=== PATIENT | female | born 1990 | race Caucasian/White ===

== ENCOUNTER 2017-06-12 20:25 | Emergency (ER) | payer SELFPAY | END 2017-06-12 22:05 | disposition left against medical advice (07) | LOC: E/R 20:25 | DX: Z53.21 Procedure and treatment not carried out due to patient leaving prior to being seen by health care provider (principal) ==

== ENCOUNTER 2017-06-13 11:01 | Emergency (ER) | payer OTHER ==
[2017-06-13] MEDS: IBUPROFEN 800 MG TAB PO (15:18)
== END 2017-06-13 15:41 | disposition home or self-care (01) ==
LOC: FTE 11:01
DX: M25.562 Pain in left knee (principal)
CPT/HCPCS: 29505; 99283-25

== ENCOUNTER 2017-07-23 20:34 | Emergency (ER) | payer OTHER ==
[2017-07-23] MEDS: ONDANSETRON (ODT) 4 MG TAB ODT (21:19)
[2017-07-23] MEDS: KETOROLAC 60 MG INJ IM (21:19)
[2017-07-23 21:27] LABS: URINE PH (Dip) POC 6.5 (5.0-8.5)
[2017-07-23 21:27] LABS: URINE BLOOD (Dip) POC Trace-intact (NEGATIVE); URINE GLUCOSE (Dip) POC Negative (NEGATIVE); URINE KETONES (Dip) POC Negative (NEGATIVE); URINE LEUKOCYTE EST (Dip) POC 1+ (NEGATIVE); URINE NITRITE (Dip) POC Negative (NEGATIVE); URINE TOTAL PROTEIN POC 1+ (NEGATIVE)
== END 2017-07-23 22:21 | disposition home or self-care (01) ==
LOC: FTE 20:34
DX: M79.1 Myalgia (principal); N39.0 Urinary tract infection, site not specified
CPT/HCPCS: 81003; 81025; 96372; 99284-25

== ENCOUNTER 2018-03-11 17:59 | Emergency (ER) | payer OTHER ==
[2018-03-11] MEDS: ACETAMINOPHEN 325 MG TAB PO (18:43)
[2018-03-11] MEDS: METOCLOPRAMIDE 10 MG INJ IV (18:43)
[2018-03-11] MEDS: SOD CHLORIDE 0.9% 1,000 ML IV (18:44)
[2018-03-11 18:55] LABS: ADD MAN DIFF? NO
[2018-03-11 18:57] LABS: WHITE BLOOD COUNT 9.9 10^3/ul (4.8-10.8)
[2018-03-11 18:57] LABS: BASOPHILS % 0.1 % (0.0-2.0); EOSINOPHILS # 0.2 10^3/ul (0.0-0.5); EOSINOPHILS % 2.1 % (0.0-7.0); HEMATOCRIT 37.5 % (37.0-47.0); LYMPHOCYTES # 2.3 10^3/ul (0.8-2.9); LYMPHOCYTES % 23.2 % (15.0-51.0); MEAN CORPUSCULAR HGB CONC 34.7 g/dl (32.0-37.0); MEAN CORPUSCULAR VOLUME 86.4 fl (82.0-101.0); MEAN PLATELET VOLUME 10.7 fl (7.4-10.4); MONOCYTE # 0.6 10^3/ul (0.3-0.9); MONOCYTES % 5.9 % (0.0-11.0); NEUTROPHIL # 6.8 10^3/ul (1.6-7.5); NEUTROPHILS % 68.5 % (39.0-77.0); PLATELET COUNT 225 10^3/UL (140-415); RED BLOOD COUNT 4.34 10^6/ul (4.20-5.40); RED CELL DISTRIBUTION WIDTH 12.3 % (11.5-14.5)
[2018-03-11 19:16] LABS: ADD UMIC YES; UR ASCORBIC ACID NEGATIVE (NEGATIVE); UR BACTERIA MODERATE /HPF (NONE SEEN); UR BILIRUBIN (Dip) NEGATIVE (NEGATIVE); UR BLOOD (Dip) NEGATIVE (NEGATIVE); UR CLARITY CLOUDY (CLEAR); UR COLOR YELLOW (YELLOW); UR GLUCOSE (Dip) NEGATIVE (NEGATIVE); UR KETONES (Dip) NEGATIVE (NEGATIVE); UR LEUKOCYTE ESTERASE (Dip) 2+ Leu/ul (NEGATIVE); UR MUCUS FEW /HPF (NONE SEEN); UR NITRITE (Dip) NEGATIVE (NEGATIVE); UR RBC 7 /HPF (0-5); UR SPECIFIC GRAVITY (Dip) 1.012 (1.003-1.030); UR SQUAMOUS EPITHELIAL CELL MODERATE /HPF (FEW); UR TOTAL PROTEIN (Dip) NEGATIVE (NEGATIVE); UR UROBILINOGEN (Dip) NEGATIVE (NEGATIVE); UR WBC 11 /HPF (0-5)
[2018-03-11 19:19] LABS: ANION GAP 10 (5-13); BLOOD UREA NITROGEN 6 mg/dl (7-20); CALCIUM 9.9 mg/dl (8.4-10.2); CARBON DIOXIDE 22 mmol/L (21-31); CHLORIDE 107 mmol/L (97-110); CREATININE 0.49 mg/dl (0.44-1.00); Estimated GFR > 60 mL/min (>60); GLUCOSE 94 mg/dl (70-220); POTASSIUM 3.8 mmol/L (3.5-5.1); SODIUM 139 mmol/L (135-144)
== END 2018-03-11 19:43 | disposition home or self-care (01) ==
LOC: FTE 17:59
DX: O21.0 Mild hyperemesis gravidarum (principal); Z3A.13 13 weeks gestation of pregnancy
CPT/HCPCS: 36415; 80048; 81001; 85025; 96374; 99284-25

== ENCOUNTER 2018-04-14 09:05 | Emergency (ER) | payer OTHER ==
[2018-04-14 09:45] LABS: ADD MAN DIFF? NO; URINE BLOOD (Dip) POC Trace-intact (NEGATIVE); URINE GLUCOSE (Dip) POC Negative (NEGATIVE); URINE KETONES (Dip) POC Negative (NEGATIVE); URINE LEUKOCYTE EST (Dip) POC 1+ (NEGATIVE); URINE NITRITE (Dip) POC Negative (NEGATIVE); URINE TOTAL PROTEIN POC Trace (NEGATIVE)
[2018-04-14 09:58] LABS: BASOPHILS % 0.2 % (0.0-2.0); EOSINOPHILS # 0.1 10^3/ul (0.0-0.5); HEMATOCRIT 37.8 % (37.0-47.0); LYMPHOCYTES # 1.3 10^3/ul (0.8-2.9); LYMPHOCYTES % 12.8 % (15.0-51.0); MEAN CORPUSCULAR HEMOGLOBIN 30.2 pg (29.0-33.0); MEAN CORPUSCULAR HGB CONC 34.4 g/dl (32.0-37.0); MEAN CORPUSCULAR VOLUME 87.7 fl (82.0-101.0); MEAN PLATELET VOLUME 10.9 fl (7.4-10.4); MONOCYTE # 0.6 10^3/ul (0.3-0.9); MONOCYTES % 6.3 % (0.0-11.0); NEUTROPHILS % 79.2 % (39.0-77.0); PLATELET COUNT 211 10^3/UL (140-415); RED BLOOD COUNT 4.31 10^6/ul (4.20-5.40); RED CELL DISTRIBUTION WIDTH 12.8 % (11.5-14.5)
[2018-04-14 10:09] LABS: ALANINE AMINOTRANSFERASE 27 IU/L (13-69); ALBUMIN 3.9 g/dl (3.3-4.9); ALKALINE PHOSPHATASE 59 IU/L (42-121); ANION GAP 10 (5-13); ASPARTATE AMINO TRANSFERASE 25 IU/L (15-46); BILIRUBIN,INDIRECT 0.6 mg/dl (0-1.1); BILIRUBIN,TOTAL 0.6 mg/dl (0.2-1.3); BLOOD UREA NITROGEN 6 mg/dl (7-20); CALCIUM 9.3 mg/dl (8.4-10.2); CARBON DIOXIDE 23 mmol/L (21-31); CHLORIDE 105 mmol/L (97-110); CREATININE 0.44 mg/dl (0.44-1.00); Estimated GFR > 60 mL/min (>60); GLUCOSE 91 mg/dl (70-220); POTASSIUM 3.9 mmol/L (3.5-5.1); SODIUM 138 mmol/L (135-144); TOTAL PROTEIN 6.9 g/dl (6.1-8.1)
== END 2018-04-14 10:33 | disposition home or self-care (01) ==
LOC: FTE 09:05
DX: O99.89 Other specified diseases and conditions complicating pregnancy, childbirth and the puerperium (principal); R09.81 Nasal congestion; R21 Rash and other nonspecific skin eruption; Z3A.01 Less than 8 weeks gestation of pregnancy
CPT/HCPCS: 36415; 80053; 81003; 85025; 99283

== ENCOUNTER 2018-06-24 11:49 | Outpatient (CLI) | payer OTHER ==
[2018-06-24 13:55] LABS: RUPTURE FETAL MEMBRANES NEGATIVE (NEGATIVE)
[2018-06-24 14:22] LABS: ADD UMIC YES; UR AMORPHOUS CRYSTAL FEW /HPF (NONE SEEN); UR ASCORBIC ACID 40 mg/dL (NEGATIVE); UR BACTERIA FEW /HPF (NONE SEEN); UR BILIRUBIN (Dip) NEGATIVE (NEGATIVE); UR BLOOD (Dip) NEGATIVE (NEGATIVE); UR CLARITY CLOUDY (CLEAR); UR COLOR YELLOW (YELLOW); UR GLUCOSE (Dip) NEGATIVE (NEGATIVE); UR KETONES (Dip) NEGATIVE (NEGATIVE); UR LEUKOCYTE ESTERASE (Dip) 3+ Leu/ul (NEGATIVE); UR NITRITE (Dip) NEGATIVE (NEGATIVE); UR NONSQUAMOUS EPITHELIAL CELL 1 /HPF (NONE SEEN); UR RBC 3 /HPF (0-5); UR SPECIFIC GRAVITY (Dip) 1.015 (1.003-1.030); UR SQUAMOUS EPITHELIAL CELL FEW /HPF (FEW); UR TOTAL PROTEIN (Dip) NEGATIVE (NEGATIVE); UR UROBILINOGEN (Dip) NEGATIVE (NEGATIVE); UR WBC 6 /HPF (0-5)
[2018-06-24 14:54] LABS: ADD MAN DIFF? NO
[2018-06-24 14:55] LABS: WHITE BLOOD COUNT 9.8 10^3/ul (4.8-10.8)
[2018-06-24 14:55] LABS: BASOPHILS % 0.2 % (0.0-2.0); EOSINOPHILS # 0.2 10^3/ul (0.0-0.5); EOSINOPHILS % 1.6 % (0.0-7.0); HEMATOCRIT 34.8 % (37.0-47.0); HEMOGLOBIN 11.5 g/dl (12.0-16.0); LYMPHOCYTES # 2.2 10^3/ul (0.8-2.9); LYMPHOCYTES % 22.3 % (15.0-51.0); MEAN CORPUSCULAR HEMOGLOBIN 30.2 pg (29.0-33.0); MEAN CORPUSCULAR VOLUME 91.3 fl (82.0-101.0); MEAN PLATELET VOLUME 10.1 fl (7.4-10.4); MONOCYTE # 0.7 10^3/ul (0.3-0.9); MONOCYTES % 6.9 % (0.0-11.0); NEUTROPHIL # 6.7 10^3/ul (1.6-7.5); NEUTROPHILS % 68.2 % (39.0-77.0); PLATELET COUNT 234 10^3/UL (140-415); RED BLOOD COUNT 3.81 10^6/ul (4.20-5.40); RED CELL DISTRIBUTION WIDTH 13.1 % (11.5-14.5)
== END 2018-06-24 15:15 | disposition home or self-care (01) ==
LOC: OBT 11:49 → L-D 11:51 → OBT 15:15
DX: O62.9 Abnormality of forces of labor, unspecified (principal); Z3A.29 29 weeks gestation of pregnancy
CPT/HCPCS: 76815; 76818; 81001; 84112; 85025

== ENCOUNTER 2018-06-27 10:25 | Outpatient (CLI) | payer OTHER | END 2018-06-27 12:44 | disposition home or self-care (01) | LOC: OBT 10:25 → L-D 10:25 → OBT 12:44 | DX: O41.93X0 Disorder of amniotic fluid and membranes, unspecified, third trimester, not applicable or unspecified (principal); Z3A.29 29 weeks gestation of pregnancy | CPT/HCPCS: 76818 ==

== ENCOUNTER 2018-07-31 16:21 | Outpatient (CLI) | payer OTHER ==
[2018-07-31 18:30] LABS: RUPTURE FETAL MEMBRANES NEGATIVE (NEGATIVE)
== END 2018-07-31 18:35 | disposition home or self-care (01) ==
LOC: OBT 16:21 → L-D 16:22 → OBT 18:35
DX: O41.93X0 Disorder of amniotic fluid and membranes, unspecified, third trimester, not applicable or unspecified (principal); Z3A.34 34 weeks gestation of pregnancy
CPT/HCPCS: 76815; 76818; 84112

== ENCOUNTER 2018-09-02 06:19 | Inpatient (IN) | payer OTHER ==
[2018-09-02] MEDS: LACTATED RINGER'S 1,000 ML IV ×4 (06:46→22:31)
[2018-09-02] MEDS ORDERED: OXYTOCIN 30 UNITS/LR 500 ML IV ×2 (07:00→14:00)
[2018-09-02] MEDS ORDERED: CARBOPROST 250 MCG INJ IM ×2 (07:00→14:00)
[2018-09-02] MEDS ORDERED: OXYTOCIN 30 UNITS/LR 500 ML BAG IV (07:00)
[2018-09-02] MEDS ORDERED: MISOPROSTOL 200 MCG TAB PR ×2 (07:00→14:00)
[2018-09-02] MEDS ORDERED: METHYLERGONOVINE 0.2 MG INJ IM ×2 (07:00→14:00)
[2018-09-02 07:02] LABS: ADD MAN DIFF? NO
[2018-09-02 07:04] LABS: BASOPHILS % 0.2 % (0.0-2.0); EOSINOPHILS # 0.1 10^3/ul (0.0-0.5); HEMATOCRIT 33.5 % (37.0-47.0); LYMPHOCYTES % 22.8 % (15.0-51.0); MEAN CORPUSCULAR HEMOGLOBIN 29.2 pg (29.0-33.0); MEAN CORPUSCULAR HGB CONC 32.8 g/dl (32.0-37.0); MEAN CORPUSCULAR VOLUME 88.9 fl (82.0-101.0); MEAN PLATELET VOLUME 10.8 fl (7.4-10.4); MONOCYTE # 0.5 10^3/ul (0.3-0.9); MONOCYTES % 6.3 % (0.0-11.0); NEUTROPHILS % 69.1 % (39.0-77.0); PLATELET COUNT 218 10^3/UL (140-415); RED BLOOD COUNT 3.77 10^6/ul (4.20-5.40); RED CELL DISTRIBUTION WIDTH 13.9 % (11.5-14.5)
[2018-09-02 07:04] LABS: WHITE BLOOD COUNT 8.6 10^3/ul (4.8-10.8)
[2018-09-02 07:26] LABS: INR 0.89; PROTIME 12.2 Sec (11.9-14.9)
[2018-09-02 07:27] LABS: PARTIAL THROMBOPLASTIN TIME 28.3 Sec (23.0-35.0)
[2018-09-02 07:59] LABS: HEPATITIS B SURFACE ANTIGEN NEGATIVE (NEGATIVE)
[2018-09-02] MEDS: ONDANSETRON 4 MG INJ IV (12:01)
[2018-09-02] MEDS: CITRIC ACID/NA CITRATE 30 ML CUP PO (12:01)
[2018-09-02] MEDS ORDERED: METOCLOPRAMIDE 10 MG INJ (12:10)
[2018-09-02] MEDS ORDERED: KETOROLAC 30 MG INJ (12:10)
[2018-09-02] MEDS ORDERED: OXYTOCIN 10 UNIT INJ ×2 (12:10)
[2018-09-02] MEDS ORDERED: morphine SULFATE/PF (10 MG/10 ML) INJ (12:10)
[2018-09-02] MEDS ORDERED: PHENYLephrine (100 MCG/ML) 10ML SYG ×2 (12:10→12:49)
[2018-09-02] MEDS ORDERED: DEXAMETHASONE 4 MG/ML 1 ML INJ (12:10)
[2018-09-02] MEDS ORDERED: DIPHENHYDRAMINE 50 MG INJ IV (13:00)
[2018-09-02] MEDS ORDERED: METOCLOPRAMIDE 10 MG INJ IV (13:00)
[2018-09-02] MEDS ORDERED: EPHEDrine SULFATE 50 MG/5 ML SYG IV (13:00)
[2018-09-02] MEDS ORDERED: morphine 2 MG INJ IV ×2 (13:00)
[2018-09-02] MEDS ORDERED: ACETAMINOPHEN 500 MG TAB PO (13:00)
[2018-09-02] MEDS ORDERED: HYDROCODONE/APAP (5/325) TAB PO (13:00)
[2018-09-02] MEDS ORDERED: MEPERIDINE 25 MG INJ IV (13:00)
[2018-09-02] MEDS ORDERED: HYDROmorphONE 0.5 MG/0.5 ML SYG IV ×2 (13:00)
[2018-09-02] MEDS ORDERED: OXYCODONE/ACETAMINOPHEN (5/325) TAB PO (13:00)
[2018-09-02] MEDS ORDERED: HYDROmorphONE 1 MG/5 ML IV SYRINGE IV ×3 (13:00)
[2018-09-02] MEDS ORDERED: NALOXONE (0.4 MG/ML) INJ IV (13:00)
[2018-09-02] MEDS ORDERED: NALBUPHINE HCL (10 MG/1 ML) INJ IV (13:00)
[2018-09-02] MEDS ORDERED: FENTAnyl 50 MCG/ML VIAL IV ×3 (13:00)
[2018-09-02] MEDS ORDERED: ONDANSETRON 4 MG INJ IV ×2 (13:00)
[2018-09-02] MEDS: OXYTOCIN 30 UNITS/LR 500 ML IV ×2 (13:28→17:52)
[2018-09-02] MEDS ORDERED: METHYLERGONOVINE 0.2 MG TAB PO (14:00)
[2018-09-02] MEDS ORDERED: LANOLIN HPA 1 PKT TOP (14:00)
[2018-09-02] MEDS: CEFAZOLIN 2 GM/50 ML (PMX) 50 ML IVPB (14:55)
[2018-09-02 15:00] LABS: RAPID PLASMA REAGIN NONREACTIVE (NR)
[2018-09-02] MEDS: DIPHENHYDRAMINE 50 MG INJ IV (16:35)
[2018-09-02] MEDS: SENNA/DOCUSATE NA (8.6MG/50MG) TAB PO (21:00)
[2018-09-03] MEDS: LACTATED RINGER'S 1,000 ML IV (04:47)
[2018-09-03 08:14] LABS: ADD MAN DIFF? NO
[2018-09-03 08:21] LABS: BASOPHILS % 0.1 % (0.0-2.0); EOSINOPHILS % 0.3 % (0.0-7.0); HEMATOCRIT 28.7 % (37.0-47.0); HEMOGLOBIN 9.2 g/dl (12.0-16.0); LYMPHOCYTES # 2.3 10^3/ul (0.8-2.9); LYMPHOCYTES % 16.1 % (15.0-51.0); MEAN CORPUSCULAR HEMOGLOBIN 28.8 pg (29.0-33.0); MEAN CORPUSCULAR HGB CONC 32.1 g/dl (32.0-37.0); MEAN PLATELET VOLUME 11.1 fl (7.4-10.4); MONOCYTE # 0.8 10^3/ul (0.3-0.9); MONOCYTES % 5.7 % (0.0-11.0); NEUTROPHILS % 77.3 % (39.0-77.0); PLATELET COUNT 209 10^3/UL (140-415); RED BLOOD COUNT 3.19 10^6/ul (4.20-5.40); RED CELL DISTRIBUTION WIDTH 13.9 % (11.5-14.5)
[2018-09-03 08:21] LABS: WHITE BLOOD COUNT 14.2 10^3/ul (4.8-10.8)
[2018-09-03 08:42] LABS: ANION GAP 4 (5-13); BLOOD UREA NITROGEN 9 mg/dl (7-20); CALCIUM 8.4 mg/dl (8.4-10.2); CARBON DIOXIDE 23 mmol/L (21-31); CHLORIDE 109 mmol/L (97-110); CREATININE 0.55 mg/dl (0.44-1.00); Estimated GFR > 60 mL/min (>60); GLUCOSE 54 mg/dl (70-220); POTASSIUM 3.7 mmol/L (3.5-5.1); SODIUM 136 mmol/L (135-144)
[2018-09-03] MEDS: SENNA/DOCUSATE NA (8.6MG/50MG) TAB PO ×2 (10:02→20:19)
[2018-09-03] MEDS: KETOROLAC 30 MG INJ IV (11:11)
[2018-09-03] MEDS: HYDROCODONE/APAP (5/325) TAB PO (20:20)
[2018-09-04] MEDS: HYDROCODONE/APAP (5/325) TAB PO ×3 (05:47→18:13)
[2018-09-04] MEDS: SENNA/DOCUSATE NA (8.6MG/50MG) TAB PO ×2 (11:04→20:14)
[2018-09-04] MEDS: IBUPROFEN 800 MG TAB PO ×2 (12:48→20:14)
[2018-09-04] MEDS ORDERED: BISACODYL 10 MG SUPP PR (19:30)
[2018-09-04] MEDS: MAGNESIUM HYDROXIDE 30ML CUP PO ×2 (20:14→21:22)
[2018-09-04] MEDS: NA PHOSPHATE/BIPHOS 133 ML ENEMA PR (20:15)
[2018-09-05] MEDS: HYDROCODONE/APAP (5/325) TAB PO ×2 (04:38→11:01)
[2018-09-05 07:03] LABS: ADD MAN DIFF? NO
[2018-09-05 07:05] LABS: WHITE BLOOD COUNT 10.1 10^3/ul (4.8-10.8)
[2018-09-05 07:05] LABS: BASOPHILS % 0.2 % (0.0-2.0); EOSINOPHILS # 0.2 10^3/ul (0.0-0.5); EOSINOPHILS % 1.8 % (0.0-7.0); HEMATOCRIT 29.5 % (37.0-47.0); HEMOGLOBIN 9.5 g/dl (12.0-16.0); LYMPHOCYTES # 2.1 10^3/ul (0.8-2.9); MEAN CORPUSCULAR HEMOGLOBIN 29.2 pg (29.0-33.0); MEAN CORPUSCULAR HGB CONC 32.2 g/dl (32.0-37.0); MEAN CORPUSCULAR VOLUME 90.8 fl (82.0-101.0); MEAN PLATELET VOLUME 10.6 fl (7.4-10.4); MONOCYTE # 0.5 10^3/ul (0.3-0.9); MONOCYTES % 5.4 % (0.0-11.0); NEUTROPHIL # 7.2 10^3/ul (1.6-7.5); NEUTROPHILS % 71.1 % (39.0-77.0); PLATELET COUNT 228 10^3/UL (140-415); RED BLOOD COUNT 3.25 10^6/ul (4.20-5.40); RED CELL DISTRIBUTION WIDTH 14.5 % (11.5-14.5)
[2018-09-05] MEDS: DIPHTH/TET/ACEL PERTUSS (ADULT) 0.5 ML VIAL IM* (08:11)
[2018-09-05] MEDS: SENNA/DOCUSATE NA (8.6MG/50MG) TAB PO (08:16)
[2018-09-05] MEDS: IBUPROFEN 800 MG TAB PO (08:16)
[2018-09-05] MEDS ORDERED: MAGNESIUM HYDROXIDE 30ML CUP PO (09:00)
[2018-09-05] MEDS: BISACODYL 10 MG SUPP PR (09:00)
[2018-09-05] MEDS: MEASLES,MUMPS,RUBELLA VACCINE INJ SC* (09:07)
[2018-09-05] MEDS: NA PHOSPHATE/BIPHOS 133 ML ENEMA PR (10:23)
== END 2018-09-05 14:28 | disposition home or self-care (01) | DRG 788 ==
LOC: L-D 06:19 → PP1 15:55
PROVIDERS: Obstetrics & Gynecology
PROC: 10D00Z1 Extraction of Products of Conception, Low, Open Approach (ICD-10-PCS; principal; 2018-09-02 10:00)
DX: O34.211 Maternal care for low transverse scar from previous cesarean delivery (principal); O99.02 Anemia complicating childbirth; D50.9 Iron deficiency anemia, unspecified; Z3A.39 39 weeks gestation of pregnancy; Z37.0 Single live birth
CPT/HCPCS: 71046; 80048; 85025; 85610; 85730; 86592; 86850; 86900; 86901; 87340; 90715; 99464